=== PATIENT | female | born 1960 ===

== ENCOUNTER 2017-09-16 16:06 | Inpatient (IN) | payer OTHER ==
[2017-09-16] MEDS ORDERED: Sodium Chloride 0.9% 500 ML IV STA (16:23)
[2017-09-16 17:01] LABS: URINE BACTERIA RARE (<OCC); URINE BILIRUBIN NEGATIVE (NEGATIVE); URINE BLOOD NEGATIVE (NEGATIVE); URINE CLARITY SLIGHTY-CLOUDY (Clear); URINE COLOR STRAW (YELLOW); URINE GLUCOSE (UA) NEG (Normal); URINE LEUKOCYTE ESTERASE NEG Leu/uL (Negative); URINE NITRATE NEGATIVE (NEGATIVE); URINE PROTEIN NEGATIVE (NEGATIVE); URINE UROBILINOGEN 0.2-1.0 mg/dL (0.2-1.0)
[2017-09-16 17:03] LABS: BASO % 0.6 % (0.0-2.0); EOS # 0.1 K/uL (0.0-0.7); EOS % 1.2 % (0.0-4.0); HEMOGLOBIN 13.7 g/dL (12.0-16.0); LYMPH # 1.6 K/uL (1.0-4.3); LYMPH % 24.2 % (20.0-40.0); MEAN CELL VOLUME 89.6 fl (81.0-99.0); MEAN CORPUSCULAR HEMOGLOBIN 30.8 pg (27.0-31.0); MEAN CORPUSCULAR HGB CONC 34.4 g/dL (33.0-37.0); MEAN PLATELET VOLUME 9.4 fl (7.2-11.7); MONO # 0.4 K/uL (0.0-0.8); MONO % 6.6 % (0.0-10.0); NEUT # 4.3 K/uL (1.8-7.0); NEUT % 67.4 % (50.0-75.0); NRBC % 0.1 % (0.0-0.0); RBC 4.44 Mil/uL (3.80-5.20); RED CELL DISTRIBUTION WIDTH 13.8 % (11.5-14.5); WHITE BLOOD COUNT 6.4 K/uL (4.8-10.8)
[2017-09-16 17:04] LABS: ACETAMINOPHEN < 10.0 ug/ml (10.0-30.0); SALICYLATE < 1.0 mg/dl
[2017-09-16 17:11] LABS: ALB/GLOB RATIO 1.2 (1.0-2.1); ALBUMIN 4.3 g/dL (3.5-5.0); ALT/SGPT 27 U/L (9-52); AST/SGOT 24 U/L (14-36); BARBITURATES, UR NEGATIVE (NEGATIVE); BLOOD UREA NITROGEN 15 mg/dl (7-17); CALCIUM 10.4 mg/dL (8.4-10.2); GFR AFRICAN-AMERICAN > 60; GFR NON-AFRICAN AMERICAN > 60; MAGNESIUM 2.3 MG/DL (1.6-2.3); OPIATES, UR NEGATIVE (NEGATIVE); PHENCYCLIDINE, UR NEGATIVE (NEGATIVE)
[2017-09-16 17:25] LABS: BENZODIAZEPINES, UR POSITIVE (NEGATIVE)
[2017-09-16 17:32] LABS: PARTIAL THROMBOPLASTIN TIME 27.7 Seconds (25.6-37.1); PROTHROMBIN TIME 11.4 Seconds (9.8-13.1)
--- NOTE | 2017-09-16 18:08 | RAD ---
HISTORY: Overdose COMPARISON: 05/27/2009 FINDINGS: LUNGS: No active pulmonary disease. PLEURA: No significant pleural effusion identified, no pneumothorax apparent. CARDIOVASCULAR: No radiographic findings to suggest acute or significant cardiovascular disease. OSSEOUS STRUCTURES: No significant abnormalities. VISUALIZED UPPER ABDOMEN: Normal. OTHER FINDINGS: None. IMPRESSION: No active disease. No significant interval change compared to the prior examination(s).
[2017-09-16] MEDS ORDERED: Sodium Chloride 0.9% 1,000 ML IV STA ×2 (18:11→18:48)
[2017-09-16 18:41] LABS: ABG ALLEN TEST YES; ARTERIAL BLOOD GAS HCO3 26.1 mmol/L (21-28); ARTERIAL BLOOD GAS O2 SAT 98.7 % (95-98); ARTERIAL BLOOD GAS PCO2 46 mm/Hg (35-45); ARTERIAL BLOOD GAS PH 7.38 (7.35-7.45); ARTERIAL BLOOD GAS PO2 98 mm/Hg (80-100); ARTERIAL BLOOD GAS TCO2 28.6 mmol/L (22-28)
[2017-09-16] MEDS ORDERED: Flumazenil 0.1 mg/ml Inj (5ml) IVP ONE (18:48)
[2017-09-16] MEDS ORDERED: Flumazenil 0.1 mg/ml Inj (5ml) IVP PRN (18:49)
--- NOTE | 2017-09-16 18:54 | CP.PCM.CON ---
History of Present Illness - History of Present Illness History of Present Illness: 57 y/o female with unknown PMx admitted to [facility] for AMS suspect overdose of unknown, benzo + opoids. Patient drowsy, unable to provide any history. Review of Systems - Review of Systems Review of Systems: Patient drowsy not able to provide any ROS 2nd drowsiness Past Patient History - Past Social History Smoking Status: Unknown If Ever Smoked - CARDIAC Hx Cardiac Disorders: No - ENDOCRINE/METABOLIC Hx Endocrine Disorders: No - GENITOURINARY/GYNECOLOGICAL Other/Comment: breast cancer - PSYCHIATRIC Hx Psychophysiologic Disorder: Yes Hx Depression: Yes Hx Substance Use: No - SURGICAL HISTORY Hx Surgeries: Yes Other/Comment: right arm "lymph node surgery" - ANESTHESIA Hx Anesthesia: Yes Hx Anesthesia Reactions: No Meds Allergies/Adverse Reactions: Allergies Allergy/AdvReac Type Severity Reaction Status Date / Time Unobtainable Allergy Verified 09/16/17 16:12 - Medications Medications: Current Medications Flumazenil (Romazicon) 0.2 mg IVP ONCE ONE Stop: 09/16/17 18:49 Flumazenil (Romazicon) 0.3 mg IVP Q2H PRN PRN Reason: Sedation Sodium Chloride (Sodium Chloride 0.9%) 1,000 mls @ 1,000 mls/hr IV .Q1H STA Stop: 09/16/17 19:10 Dextrose/Sodium Chloride (Dextrose 5%-0.9% Ns 500 Ml) 1,000 mls @ 100 mls/hr IV .Q10H FLACO Sodium Chloride (Sodium Chloride 0.9%) 1,000 mls @ 1,000 mls/hr IV .Q1H STA Stop: 09/16/17 19:47 Dextrose/Sodium Chloride (Dextrose 5%/0.9% Ns 1000 Ml) 1,000 mls @ 75 mls/hr IV .[id number] FLACO Stop: 09/17/17 18:51 Physical Exam - Head Exam Head Exam: ATRAUMATIC, NORMAL INSPECTION, NORMOCEPHALIC - Eye Exam Eye Exam: EOMI Additional comments: pinpoint pupils - Respiratory Exam Respiratory Exam: Clear to Auscultation Bilateral, NORMAL BREATHING PATTERN - Extremities Exam Extremities exam: Positive for: normal inspection - Neurological Exam Neurological exam: Altered Results - Vital Signs Recent Vital Signs: Last Vital Signs Temp 97.1 F L 09/16/17 18:12 Pulse 63 09/16/17 18:12 Resp 18 09/16/17 18:12 BP 86/60 L 09/16/17 18:12 Pulse Ox 98 09/16/17 18:12 - Labs Result Diagrams: 09/16/17 16:46 09/16/17 16:46 Labs: Laboratory Results - last 24 hr 09/16/17 09/16/17 09/16/17 16:46 16:46 16:46 WBC 6.4 RBC 4.44 Hgb 13.7 Hct 39.8 MCV 89.6 MCH 30.8 MCHC 34.4 RDW 13.8 Plt Count 248 MPV 9.4 Neut % (Auto) 67.4 Lymph % (Auto) 24.2 [place] % (Auto) 6.6 Eos % (Auto) 1.2 Baso % (Auto) 0.6 Neut # 4.3 Lymph # 1.6 [place] # 0.4 Eos # 0.1 Baso # 0.0 PT INR APTT pCO2 pO2 HCO3 ABG pH ABG Total CO2 ABG O2 Saturation ABG Base Excess Nando Test ABG Potassium A-a O2 Difference Glucose Lactate FiO2 Sodium 135 Potassium 4.5 Chloride 101 Carbon Dioxide 33 H Anion Gap 6 L BUN 15 Creatinine 0.8 Est GFR ( Amer) > 60 Est GFR (Non-Af Amer) > 60 POC Glucose (mg/dL) Random Glucose 93 Calcium 10.4 H Phosphorus 3.2 Magnesium 2.3 Total Bilirubin 0.6 AST 24 ALT 27 Alkaline Phosphatase 58 Troponin I < 0.0120 Total Protein 8.0 Albumin 4.3 Globulin 3.7 Albumin/Globulin Ratio 1.2 Arterial Blood Potassium Urine Color Urine Clarity Urine pH Ur Specific [place] Urine Protein Urine Glucose (UA) Urine Ketones Urine Blood Urine Nitrate Urine Bilirubin Urine Urobilinogen Ur Leukocyte Esterase Urine RBC (Auto) Urine Microscopic WBC Urine Bacteria Salicylates < 1.0 Urine Opiates Screen Urine Methadone Screen Acetaminophen < 10.0 L Ur Barbiturates Screen Ur Phencyclidine Scrn Ur Amphetamines Screen U Benzodiazepines Scrn U Oth Cocaine Metabols U Cannabinoids Screen Alcohol, Quantitative < 10 Blood Type Antibody Screen BBK History Checked 09/16/17 09/16/17 09/16/17 16:46 16:46 16:46 WBC RBC Hgb Hct MCV MCH MCHC RDW Plt Count MPV Neut % (Auto) Lymph % (Auto) [place] % (Auto) Eos % (Auto) Baso % (Auto) Neut # Lymph # [place] # Eos # Baso # PT 11.4 INR 1.0 APTT 27.7 pCO2 pO2 HCO3 ABG pH ABG Total CO2 ABG O2 Saturation ABG Base Excess Nando Test ABG Potassium A-a O2 Difference Glucose Lactate FiO2 Sodium Potassium Chloride Carbon Dioxide Anion Gap BUN Creatinine Est GFR ( Amer) Est GFR (Non-Af Amer) POC Glucose (mg/dL) Random Glucose Calcium Phosphorus Magnesium Total Bilirubin AST ALT Alkaline Phosphatase Troponin I Total Protein Albumin Globulin Albumin/Globulin Ratio Arterial Blood Potassium Urine Color Straw Urine Clarity Slighty-cloudy Urine pH 7.0 Ur Specific [place] < 1.005 Urine Protein Negative Urine Glucose (UA) Neg Urine Ketones Negative Urine Blood Negative Urine Nitrate Negative Urine Bilirubin Negative Urine Urobilinogen 0.2-1.0 Ur Leukocyte Esterase Neg Urine RBC (Auto) 1 Urine Microscopic WBC 1 Urine Bacteria Rare Salicylates Urine Opiates Screen Negative Urine Methadone Screen Negative Acetaminophen Ur Barbiturates Screen Negative Ur Phencyclidine Scrn Negative Ur Amphetamines Screen Negative U Benzodiazepines Scrn Positive U Oth Cocaine Metabols Negative U Cannabinoids Screen Negative Alcohol, Quantitative Blood Type Antibody Screen BBK History Checked 09/16/17 09/16/17 09/16/17 17:00 18:17 18:32 WBC RBC Hgb Hct MCV MCH MCHC RDW Plt Count MPV Neut % (Auto) Lymph % (Auto) [place] % (Auto) Eos % (Auto) Baso % (Auto) Neut # Lymph # [place] # Eos # Baso # PT INR APTT pCO2 46 H pO2 98 HCO3 26.1 ABG pH 7.38 ABG Total CO2 28.6 H ABG O2 Saturation 98.7 H ABG Base Excess 1.5 Nando Test Yes ABG Potassium 3.6 A-a O2 Difference -6.0 Glucose 98 Lactate 0.5 L FiO2 21.0 Sodium 139.0 Potassium Chloride 109.0 H Carbon Dioxide Anion Gap BUN Creatinine Est GFR ( Amer) Est GFR (Non-Af Amer) POC Glucose (mg/dL) 96 Random Glucose Calcium Phosphorus Magnesium Total Bilirubin AST ALT Alkaline Phosphatase Troponin I Total Protein Albumin Globulin Albumin/Globulin Ratio Arterial Blood Potassium 3.6 Urine Color Urine Clarity Urine pH Ur Specific [place] Urine Protein Urine Glucose (UA) Urine Ketones Urine Blood Urine Nitrate Urine Bilirubin Urine Urobilinogen Ur Leukocyte Esterase Urine RBC (Auto) Urine Microscopic WBC Urine Bacteria Salicylates Urine Opiates Screen Urine Methadone Screen Acetaminophen Ur Barbiturates Screen Ur Phencyclidine Scrn Ur Amphetamines Screen U Benzodiazepines Scrn U Oth Cocaine Metabols U Cannabinoids Screen Alcohol, Quantitative Blood Type B POSITIVE Antibody Screen Negative BBK History Checked No verified bt Assessment & Plan - Assessment and Plan (Free Text) Plan: Drug overdose: suspect benzo +/- oxycodone: able to protect airway, -obtain CT r/o ICH -will benefit from ICU level care -monitor endtidal CO2 and infuse flumazenil if RR <8 or ETCo2 > 45 -NPO -hypercalcemia: cause unknoen, check afterIV hydration -check UA, vitamin D levels -IVF D5/ns -NO signs of sepsis, check lactica dn procalcitonine -dvt ppx heparin sq -pud ppx not indicated multiple diagnostic tests pending prognsosi guarded pending resutls of above diagnostic tests. Patient will benfit from ICU level monitoring until ingested drug is metabolized - Date & Time Date: 09/16/17 Time: 18:56
[2017-09-16] MEDS ORDERED: Naloxone 0.4 mg/ml Inj (Adult) IVP ONE (19:00)
[2017-09-16] MEDS ORDERED: Dextrose 5%/0.9% NS 1,000 ML IV SCH (19:00)
--- NOTE | 2017-09-16 19:03 | ED PDOC ---
HPI: Psych/Substance Abuse Time Seen by Provider: 09/16/17 16:13 Chief Complaint (Nursing): Substance Abuse Chief Complaint (Provider): Substance Abuse ED Caveat: Unstable Vital Signs, Other History Per: EMS, Family () History/Exam Limitations: clinical condition (overdose) Onset/Duration Of Symptoms: Mins (prior to arrival) Current Symptoms Are (Timing): Still Present Additional Complaint(s): 57 year old female with previous medical history of anxiety, who presents to the emergency department via EMS with for an overdose of 26-28 tablets of Xanax 2mg in attempted suicide prior to arrival. Unable to obtain medical history of patient due to current clinical condition. reported patient wanted to kill herself after finding out about 's cancer. He denied any ingestion of alcohol or other drugs. PMD: none provided Past Medical History Reviewed: Nursing Documentation, Unable To Obtain (overdose) Vital Signs: Last Vital Signs Temp 97.1 F L 09/16/17 18:12 Pulse 63 09/16/17 18:12 Resp 18 09/16/17 18:12 BP 86/60 L 09/16/17 18:12 Pulse Ox 98 09/16/17 18:12 - Medical History PMH: Depression, Malignancy (breast cancer) Denies: No Chronic Diseases - Surgical History Surgical History: Denies: No Surg Hx Other surgeries: right arm lymphadenectomy - Family History Family History: States: Unknown Family Hx - Social History Current smoker - smoking cessation education provided: No Alcohol: Occasional Drugs: Denies - Home Medications Home Medications: Ambulatory Orders Medication Instructions Recorded Alprazolam [Xanax] 2 mg PO PRN PRN 09/16/17 valACYclovir [Valtrex] 500 mg PO DAILY 09/16/17 - Allergies Allergies/Adverse Reactions: Allergies Allergy/AdvReac Type Severity Reaction Status Date / Time morphine Allergy ANAPHYLAXIS Verified 09/16/17 23:46 Penicillins Allergy ANAPHYLAXIS Verified 09/16/17 23:46 Review of Systems Review Of Systems: ROS cannot be obtained secondary to pt's inabilty to answer questions. (overdose) Physical Exam - Reviewed Nursing Documentation Reviewed: Yes Vital Signs Reviewed: Yes - Physical Exam Appears: Positive for: In Acute Distress (obtunded and confused) Head Exam: Positive for: ATRAUMATIC, NORMOCEPHALIC Skin: Positive for: Warm, Dry, Pallor Eye Exam: Positive for: EOMI, PERRL ENT: Positive for: Other (tacky mucus membranes, intact gag reflex) Neck: Positive for: Painless ROM, Supple Cardiovascular/Chest: Positive for: Regular Rate, Rhythm, Chest Non Tender. Negative for: Murmur Respiratory: Positive for: Normal Breath Sounds. Negative for: Wheezing, Respiratory Distress Gastrointestinal/Abdominal: Positive for: Soft. Negative for: Tenderness Back: Positive for: Normal Inspection. Negative for: Decreased ROM Extremity: Positive for: Normal ROM. Negative for: Deformity Lymphatic: Negative for: Adenopathy Neurologic/Psych: Positive for: Other (GCS 13, sleepy but arousable to voice. SPeech slurred.). Negative for: Alert, Motor/Sensory Deficits - Laboratory Results Result Diagrams: 09/18/17 10:20 09/18/17 10:20 - ECG ECG Rhythm: Positive for: Sinus Rhythm, ST/T Changes O2 Sat by Pulse Oximetry: 98 (RA) Pulse Ox Interpretation: Normal - Radiology X-Ray: Interpreted by Dc X-Ray Interpretation: No Acute Disease - Critical Care Total Time (In Min): 30 Documented Critical Care: Time excludes all time spent performint seperately billable procedures Medical Decision Making Medical Decision Making: Initial Impression: Benzodiazepine overdose Initial Plan: * Type and screen * ABG shock panel * EKG * Acetaminophen * Alcohol serum * CMP * Magnesium * Phosphorous * Salicylate Troponin I * Critical care consult 1846 * Poison control consult 1622 * Urine dipstick * CBC * PTT * PT * CXR * Dextrose 5% 1,000ml IV per 100mls/hr * NS 500ml IV per 500mls/hr * 1:1 OBS Time: 1622 --Poison control consult: recommended supportive care. Advises against use of flumazenil due to pt's known dependence on benzodiazepines. Has high risk of seizure if given. Time: 1700 --CXR FINDINGS: LUNGS: No active pulmonary disease. PLEURA: No significant pleural effusion identified, no pneumothorax apparent. CARDIOVASCULAR: No radiographic findings to suggest acute or significant cardiovascular disease. OSSEOUS STRUCTURES: No significant abnormalities. VISUALIZED UPPER ABDOMEN: Normal. OTHER FINDINGS: None. IMPRESSION: No active disease. No significant interval change compared to the prior examination(s). Time: 1830 --Systolic blood pressure: 89. Improving with aggressive IV hydration. --Arousable to voice but confused. Mental status essentially unchanged. --Discussed case with Dr. Chua, medical services --Discussed case with Dr. Poonam Paul, intensive care Time: 2040 --CT head FINDINGS: Brain: Minimal atrophy. No intracranial hemorrhage. No mass. No definite edema. Ventricles: No hydrocephalus. Bones/joints: No acute fracture. Soft tissues: Several foci of air within left buttermilk drier operator space and left scalp, nonspecific. Sinuses: Mild focal mucosal thickening of LEFT maxillary sinus. Mastoid air cells: No mastoid effusion. Orbits: Unremarkable as visualized. IMPRESSION: 1. No definite acute intracranial abnormality. 2. Incidental/non-acute findings are described above. Scribe Attestation: Documented by Gloria Camp, acting as a scribe for Clementine Tracey MD. Provider Scribe Attestation: All medical record entries made by the Scribe were at my direction and personally dictated by me. I have reviewed the chart and agree that the record accurately reflects my personal performance of the history, physical exam, medical decision making, and the department course for this patient. I have also personally directed, reviewed, and agree with the discharge instructions and disposition. Disposition - Clinical Impression Clinical Impression: Intentional benzodiazepine overdose Counseled Patient/Family Regarding: Studies Performed, Diagnosis - Disposition Disposition Time: 17:00 Condition: CRITICAL - Pt Status Changed To: Hospital Disposition Of: Inpatient - Admit Certification Admit to Inpatient:: After my assessment, the patient will require hospitalization for at least two midnights. This is because of the severity of symptoms shown, intensity of services needed, and/or the medical risk in this patient being treated as an outpatient. - POA Present On Arrival: Falls Or Trauma (risk)
[2017-09-16] MEDS ORDERED: Naloxone 0.4 mg/ml Inj (Adult) ONE (19:44)
--- NOTE | 2017-09-16 20:41 | CT ---
EXAM: CT Head Without Intravenous Contrast CLINICAL HISTORY: 57 years old, female; Signs and symptoms; Other: R/O AMS; Additional info: R/O AMS. Benzodiazepine overdose TECHNIQUE: Axial computed tomography images of the head/brain without intravenous contrast. All CT scans at this facility use one or more dose reduction techniques, viz.: automated exposure control; ma/kV adjustment per patient size (including targeted exams where dose is matched to indication; i.e. head); or iterative reconstruction technique. Coronal and sagittal reformatted images were created and reviewed. COMPARISON: No relevant prior studies available. FINDINGS: Brain: Minimal atrophy. No intracranial hemorrhage. No mass. No definite edema. Ventricles: No hydrocephalus. Bones/joints: No acute fracture. Soft tissues: Several foci of air within left commissioner of officials space and left scalp, nonspecific. Sinuses: Mild focal mucosal thickening of LEFT maxillary sinus. Mastoid air cells: No mastoid effusion. Orbits: Unremarkable as visualized. IMPRESSION: 1. No definite acute intracranial abnormality. 2. Incidental/non-acute findings are described above.
[2017-09-16] MEDS ORDERED: Sodium Chloride 0.9% 250 ML IV ONE (23:34)
[2017-09-17] MEDS ORDERED: Sodium Chloride 0.9% 1,000 ML IV SCH (01:00)
[2017-09-17 05:46] LABS: MEAN CELL VOLUME 92.3 fl (81.0-99.0); MEAN CORPUSCULAR HEMOGLOBIN 29.8 pg (27.0-31.0); MEAN CORPUSCULAR HGB CONC 32.3 g/dL (33.0-37.0); RBC 4.02 Mil/uL (3.80-5.20); RED CELL DISTRIBUTION WIDTH 13.9 % (11.5-14.5); WHITE BLOOD COUNT 11.4 K/uL (4.8-10.8)
[2017-09-17 05:59] LABS: ALBUMIN 3.2 g/dL (3.5-5.0); ALT/SGPT 26 U/L (9-52); AST/SGOT 20 U/L (14-36); BLOOD UREA NITROGEN 10 mg/dl (7-17); CALCIUM 8.5 mg/dL (8.4-10.2); GFR AFRICAN-AMERICAN > 60; GFR NON-AFRICAN AMERICAN > 60
[2017-09-17] MEDS ORDERED: Enoxaparin 40 mg Syringe SC SCH ×2 (12:00→20:00)
--- NOTE | 2017-09-17 13:40 | CP.PCM.CON ---
History of Present Illness - History of Present Illness History of Present Illness: Psychiatry consult Interview limited as the patient is acutely lethargic and unable to engage properly in interview. Case discussed w/ the patient's who was present in the room. Chart reviewed for history. CC: Overdose HPI:57 yo female BIB EMS after she overdosed on 26-28 tablets of Xanax 2 mg, which states she normally takes to help her sleep. As per , that patient attempted to kill herself after learning that he has cancer. He reports that she fears being alone and living without him. Patient receives the Xanax from her PMD. He believes she has been suffering from depression and anxiety. He denied that she has reported psychotic symptoms to him. PMHx: Patient unable to provide history at this time SHx: , lives w/ . No other illicit drug use. PPHx: Receives Xanax from her PMD; was previously treated w/ outpatient psychiatric treatment by a psychiatrist in [place], but no current tx. MSE: Patient unable to participate in interview due to lethargy. A + O x 1. Impression: 57 yo female presents s/p suicide attempt. Patient needs acute inpatient psychiatric admission when she is medically stable. -If patient agreeable, would admit patient to psychiatry unit 3NS; it patient is not agreeable to voluntary psychiatric admission, would screen patient for involuntary commitment -Would not start psychotropic medications until patient is medically stable -Continue 1:1 for safety Past Patient History - Past Medical History & Family History Past Medical History?: Yes - Past Social History Alcohol: Occasional Drugs: Denies - CARDIAC Hx Cardiac Disorders: No - PULMONARY Hx Respiratory Disorders: No - NEUROLOGICAL Hx Neurological Disorder: No - HEENT Hx HEENT Problems: No - RENAL Hx Chronic Kidney Disease: No - ENDOCRINE/METABOLIC Hx Hypothyroidism: Yes (pt takes synthroid) - HEMATOLOGICAL/ONCOLOGICAL Hx Blood Disorders: No - INTEGUMENTARY Hx Dermatological Problems: No - MUSCULOSKELETAL/RHEUMATOLOGICAL Hx Musculoskeletal Disorders: No - GASTROINTESTINAL Hx Gastrointestinal Disorders: No - GENITOURINARY/GYNECOLOGICAL Other/Comment: breast cancer - PSYCHIATRIC Hx Depression: Yes - SURGICAL HISTORY Hx Surgeries: Yes Other/Comment: right arm "lymph node surgery" - ANESTHESIA Hx Anesthesia: Yes Hx Anesthesia Reactions: No Meds Allergies/Adverse Reactions: Allergies Allergy/AdvReac Type Severity Reaction Status Date / Time morphine Allergy ANAPHYLAXIS Verified 09/16/17 23:46 Penicillins Allergy ANAPHYLAXIS Verified 09/16/17 23:46 - Medications Medications: Current Medications Enoxaparin Sodium (Lovenox) 40 mg SC DAILY [facility] PRN Reason: Protocol Flumazenil (Romazicon) 0.3 mg IVP Q2H PRN PRN Reason: Sedation Heparin Sodium (Porcine) (Heparin) 5,000 units SC Q8 [facility] PRN Reason: Protocol Last Admin: 09/17/17 09:13 Dose: 5,000 units Dextrose/Sodium Chloride (Dextrose 5%-0.9% Ns 500 Ml) 1,000 mls @ 150 mls/hr IV .Q6H40M [facility] Last Admin: 09/17/17 03:34 Dose: 150 mls/hr Sodium Chloride (Sodium Chloride 0.9%) 1,000 mls @ 999 mls/hr IV .Q1H1M [facility] Stop: 09/18/17 01:01 Last Admin: 09/17/17 01:21 Dose: 999 mls/hr Results - Vital Signs Recent Vital Signs: Last Vital Signs Temp 98.4 F 09/17/17 12:00 Pulse 79 09/17/17 12:00 Resp 18 09/17/17 12:00 BP 95/67 L 09/17/17 12:00 Pulse Ox 98 09/17/17 12:00 - Labs Result Diagrams: 09/17/17 05:44 09/17/17 05:44 Labs: Laboratory Results - last 24 hr 09/16/17 09/16/17 09/16/17 16:46 16:46 16:46 WBC 6.4 RBC 4.44 Hgb 13.7 Hct 39.8 MCV 89.6 MCH 30.8 MCHC 34.4 RDW 13.8 Plt Count 248 MPV 9.4 Neut % (Auto) 67.4 Lymph % (Auto) 24.2 Sumner % (Auto) 6.6 Eos % (Auto) 1.2 Baso % (Auto) 0.6 Neut # 4.3 Lymph # 1.6 Sumner # 0.4 Eos # 0.1 Baso # 0.0 PT INR APTT pCO2 pO2 HCO3 ABG pH ABG Total CO2 ABG O2 Saturation ABG Base Excess Nando Test ABG Potassium A-a O2 Difference Glucose Lactate FiO2 Sodium 135 Potassium 4.5 Chloride 101 Carbon Dioxide 33 H Anion Gap 6 L BUN 15 Creatinine 0.8 Est GFR ( Amer) > 60 Est GFR (Non-Af Amer) > 60 POC Glucose (mg/dL) Random Glucose 93 Lactic Acid Calcium 10.4 H Phosphorus 3.2 Magnesium 2.3 Total Bilirubin 0.6 AST 24 ALT 27 Alkaline Phosphatase 58 Troponin I < 0.0120 Total Protein 8.0 Albumin 4.3 Globulin 3.7 Albumin/Globulin Ratio 1.2 Arterial Blood Potassium Urine Color Urine Clarity Urine pH Ur Specific [place] Urine Protein Urine Glucose (UA) Urine Ketones Urine Blood Urine Nitrate Urine Bilirubin Urine Urobilinogen Ur Leukocyte Esterase Urine RBC (Auto) Urine Microscopic WBC Urine Bacteria Salicylates < 1.0 Urine Opiates Screen Urine Methadone Screen Acetaminophen < 10.0 L Ur Barbiturates Screen Ur Phencyclidine Scrn Ur Amphetamines Screen U Benzodiazepines Scrn U Oth Cocaine Metabols U Cannabinoids Screen Alcohol, Quantitative < 10 Blood Type Antibody Screen BBK History Checked 09/16/17 09/16/17 09/16/17 16:46 16:46 16:46 WBC RBC Hgb Hct MCV MCH MCHC RDW Plt Count MPV Neut % (Auto) Lymph % (Auto) Sumner % (Auto) Eos % (Auto) Baso % (Auto) Neut # Lymph # [place] # Eos # Baso # PT 11.4 INR 1.0 APTT 27.7 pCO2 pO2 HCO3 ABG pH ABG Total CO2 ABG O2 Saturation ABG Base Excess Nando Test ABG Potassium A-a O2 Difference Glucose Lactate FiO2 Sodium Potassium Chloride Carbon Dioxide Anion Gap BUN Creatinine Est GFR ( Amer) Est GFR (Non-Af Amer) POC Glucose (mg/dL) Random Glucose Lactic Acid Calcium Phosphorus Magnesium Total Bilirubin AST ALT Alkaline Phosphatase Troponin I Total Protein Albumin Globulin Albumin/Globulin Ratio Arterial Blood Potassium Urine Color Straw Urine Clarity Slighty-cloudy Urine pH 7.0 Ur Specific [place] < 1.005 Urine Protein Negative Urine Glucose (UA) Neg Urine Ketones Negative Urine Blood Negative Urine Nitrate Negative Urine Bilirubin Negative Urine Urobilinogen 0.2-1.0 Ur Leukocyte Esterase Neg Urine RBC (Auto) 1 Urine Microscopic WBC 1 Urine Bacteria Rare Salicylates Urine Opiates Screen Negative Urine Methadone Screen Negative Acetaminophen Ur Barbiturates Screen Negative Ur Phencyclidine Scrn Negative Ur Amphetamines Screen Negative U Benzodiazepines Scrn Positive U Oth Cocaine Metabols Negative U Cannabinoids Screen Negative Alcohol, Quantitative Blood Type Antibody Screen BBK History Checked 09/16/17 09/16/17 09/16/17 17:00 18:17 18:32 WBC RBC Hgb Hct MCV MCH MCHC RDW Plt Count MPV Neut % (Auto) Lymph % (Auto) Sumner % (Auto) Eos % (Auto) Baso % (Auto) Neut # Lymph # [place] # Eos # Baso # PT INR APTT pCO2 46 H pO2 98 HCO3 26.1 ABG pH 7.38 ABG Total CO2 28.6 H ABG O2 Saturation 98.7 H ABG Base Excess 1.5 Nando Test Yes ABG Potassium 3.6 A-a O2 Difference -6.0 Glucose 98 Lactate 0.5 L FiO2 21.0 Sodium 139.0 Potassium Chloride 109.0 H Carbon Dioxide Anion Gap BUN Creatinine Est GFR ( Amer) Est GFR (Non-Af Amer) POC Glucose (mg/dL) 96 Random Glucose Lactic Acid Calcium Phosphorus Magnesium Total Bilirubin AST ALT Alkaline Phosphatase Troponin I Total Protein Albumin Globulin Albumin/Globulin Ratio Arterial Blood Potassium 3.6 Urine Color Urine Clarity Urine pH Ur Specific [place] Urine Protein Urine Glucose (UA) Urine Ketones Urine Blood Urine Nitrate Urine Bilirubin Urine Urobilinogen Ur Leukocyte Esterase Urine RBC (Auto) Urine Microscopic WBC Urine Bacteria Salicylates Urine Opiates Screen Urine Methadone Screen Acetaminophen Ur Barbiturates Screen Ur Phencyclidine Scrn Ur Amphetamines Screen U Benzodiazepines Scrn U Oth Cocaine Metabols U Cannabinoids Screen Alcohol, Quantitative Blood Type B POSITIVE Antibody Screen Negative BBK History Checked No verified bt 09/16/17 09/16/17 09/16/17 20:15 23:00 23:27 WBC RBC Hgb Hct MCV MCH MCHC RDW Plt Count MPV Neut % (Auto) Lymph % (Auto) Sumner % (Auto) Eos % (Auto) Baso % (Auto) Neut # Lymph # [place] # Eos # Baso # PT INR APTT pCO2 pO2 HCO3 ABG pH ABG Total CO2 ABG O2 Saturation ABG Base Excess Nando Test ABG Potassium A-a O2 Difference Glucose Lactate FiO2 Sodium Potassium Chloride Carbon Dioxide Anion Gap BUN Creatinine Est GFR ( Amer) Est GFR (Non-Af Amer) POC Glucose (mg/dL) 111 H Random Glucose Lactic Acid 1.7 0.9 Calcium Phosphorus Magnesium Total Bilirubin AST ALT Alkaline Phosphatase Troponin I Total Protein Albumin Globulin Albumin/Globulin Ratio Arterial Blood Potassium Urine Color Urine Clarity Urine pH Ur Specific [place] Urine Protein Urine Glucose (UA) Urine Ketones Urine Blood Urine Nitrate Urine Bilirubin Urine Urobilinogen Ur Leukocyte Esterase Urine RBC (Auto) Urine Microscopic WBC Urine Bacteria Salicylates Urine Opiates Screen Urine Methadone Screen Acetaminophen Ur Barbiturates Screen Ur Phencyclidine Scrn Ur Amphetamines Screen U Benzodiazepines Scrn U Oth Cocaine Metabols U Cannabinoids Screen Alcohol, Quantitative Blood Type Antibody Screen BBK History Checked 09/17/17 09/17/17 09/17/17 03:00 05:44 05:44 WBC 11.4 H D RBC 4.02 Hgb 12.0 Hct 37.1 MCV 92.3 D MCH 29.8 MCHC 32.3 L RDW 13.9 Plt Count 191 MPV Neut % (Auto) Lymph % (Auto) [place] % (Auto) Eos % (Auto) Baso % (Auto) Neut # Lymph # [place] # Eos # Baso # PT INR APTT pCO2 pO2 HCO3 ABG pH ABG Total CO2 ABG O2 Saturation ABG Base Excess Nando Test ABG Potassium A-a O2 Difference Glucose Lactate FiO2 Sodium 148 Potassium 4.4 Chloride 112 H Carbon Dioxide 29 Anion Gap 11 BUN 10 Creatinine 0.7 Est GFR ( Amer) > 60 Est GFR (Non-Af Amer) > 60 POC Glucose (mg/dL) Random Glucose 116 H Lactic Acid 1.4 Calcium 8.5 Phosphorus Magnesium Total Bilirubin 0.5 AST 20 ALT 26 Alkaline Phosphatase 47 Troponin I Total Protein 6.3 Albumin 3.2 L D Globulin 3.1 Albumin/Globulin Ratio 1.0 Arterial Blood Potassium Urine Color Urine Clarity Urine pH Ur Specific [place] Urine Protein Urine Glucose (UA) Urine Ketones Urine Blood Urine Nitrate Urine Bilirubin Urine Urobilinogen Ur Leukocyte Esterase Urine RBC (Auto) Urine Microscopic WBC Urine Bacteria Salicylates Urine Opiates Screen Urine Methadone Screen Acetaminophen Ur Barbiturates Screen Ur Phencyclidine Scrn Ur Amphetamines Screen U Benzodiazepines Scrn U Oth Cocaine Metabols U Cannabinoids Screen Alcohol, Quantitative Blood Type Antibody Screen BBK History Checked 09/17/17 09/17/17 06:06 11:10 WBC RBC Hgb Hct MCV MCH MCHC RDW Plt Count MPV Neut % (Auto) Lymph % (Auto) [place] % (Auto) Eos % (Auto) Baso % (Auto) Neut # Lymph # [place] # Eos # Baso # PT INR APTT pCO2 pO2 HCO3 ABG pH ABG Total CO2 ABG O2 Saturation ABG Base Excess Nando Test ABG Potassium A-a O2 Difference Glucose Lactate FiO2 Sodium Potassium Chloride Carbon Dioxide Anion Gap BUN Creatinine Est GFR ( Amer) Est GFR (Non-Af Amer) POC Glucose (mg/dL) 109 106 Random Glucose Lactic Acid Calcium Phosphorus Magnesium Total Bilirubin AST ALT Alkaline Phosphatase Troponin I Total Protein Albumin Globulin Albumin/Globulin Ratio Arterial Blood Potassium Urine Color Urine Clarity Urine pH Ur Specific [place] Urine Protein Urine Glucose (UA) Urine Ketones Urine Blood Urine Nitrate Urine Bilirubin Urine Urobilinogen Ur Leukocyte Esterase Urine RBC (Auto) Urine Microscopic WBC Urine Bacteria Salicylates Urine Opiates Screen Urine Methadone Screen Acetaminophen Ur Barbiturates Screen Ur Phencyclidine Scrn Ur Amphetamines Screen U Benzodiazepines Scrn U Oth Cocaine Metabols U Cannabinoids Screen Alcohol, Quantitative Blood Type Antibody Screen BBK History Checked
--- NOTE | 2017-09-17 21:54 | CARD ---
APPROVED REPORT EKG Measurement Heart [id number] <Conclusion> Normal sinus rhythm Normal ECG
--- NOTE | 2017-09-18 04:38 | HP ---
HISTORY OF PRESENT ILLNESS: This is a 57-year-old female with no significant past medical history, was brought to emergency room after ingesting a whole bottle of alprazolam. The patient was upset after hearing the news of her 's diagnosis of cancer. Patient decided to end her life. Patient sent a text massage to her friend informing her that she decided to end her life after she heard the diagnosis of cancer of her . Patient was brought lethargic to emergency room and she had stable vital signs. Poison Control was contacted and patient was admitted to Intensive Care Unit after starting IV fluid and following Poison Control recommendations. No history is obtainable from the patient at the time of this examination. All history was obtained by the who was at the bedside. ALLERGIES: POSITIVE FOR MORPHINE AND PENICILLIN. PAST MEDICAL HISTORY: None. PAST SURGICAL HISTORY: None. SOCIAL HISTORY: No history of smoking, EtOH or substance abuse. FAMILY HISTORY: Noncontributory. PHYSICAL EXAMINATION: GENERAL: The patient is again lethargic at the time of this examination, was not in any cardiopulmonary distress. VITAL SIGNS: Blood pressure 100/65, temperature 98.4, respiratory rate 20 and pulse 75. HEENT: Pupils equal, reactive to light. Normal-appearing mucosa of the conjunctivae, oropharyngeal, and nasal membrane mucosa. NECK: Supple. No JVD. No carotid bruit. No lymph node. No thyromegaly. CHEST AND LUNGS: Bilateral symmetrical expansion. Good air exchange. No rales, no rhonchi. CARDIOVASCULAR SYSTEM: PMI not localized. S1, S2. No additional sounds. ABDOMEN: Normoactive bowel sounds. No tenderness. No organomegaly. No masses. EXTREMITIES: No cyanosis, no clubbing, no edema. CENTRAL NERVOUS SYSTEM: The patient is lethargic. She is following simple commands and falls back to sleep, but no signs of lateralization. ASSESSMENT: Suicidal attempt with ingestion of her own medications of Xanax. PLAN: Continue IV fluids. Continue one-to-one observation, Psych consult and follow Poison Control recommendations. Brittany Chua MD
[2017-09-18] MEDS ORDERED: Acetaminophen 650mg/20.3ml solution UD PO ONE (05:01)
[2017-09-18 07:56] VITALS: RESP 20
[2017-09-18] MEDS ORDERED: Flumazenil 0.1 mg/ml Inj (5ml) IVP PRN (10:00)
[2017-09-18 10:38] LABS: HEMOGLOBIN 12.1 g/dL (12.0-16.0); MEAN CELL VOLUME 90.6 fl (81.0-99.0); MEAN CORPUSCULAR HEMOGLOBIN 30.3 pg (27.0-31.0); MEAN CORPUSCULAR HGB CONC 33.4 g/dL (33.0-37.0); RBC 3.99 Mil/uL (3.80-5.20); RED CELL DISTRIBUTION WIDTH 13.4 % (11.5-14.5)
[2017-09-18 10:54] LABS: ALB/GLOB RATIO 1.1 (1.0-2.1); ALBUMIN 3.4 g/dL (3.5-5.0); ALT/SGPT 30 U/L (9-52); AST/SGOT 32 U/L (14-36); BLOOD UREA NITROGEN 6 mg/dl (7-17); CALCIUM 8.6 mg/dL (8.4-10.2); GFR AFRICAN-AMERICAN > 60; GFR NON-AFRICAN AMERICAN > 60
[2017-09-18 14:07] VITALS: O2SAT 98
[2017-09-18 16:49] VITALS: BP 110/63; PULSE 60; TEMP 98.1
[2017-09-18 23:00] LABS: OXYCODONE SCREEN negative
--- NOTE | 2017-09-19 22:10 | DS ---
REASON FOR ADMISSION: This is a 57-year-old female with no significant past medical history, was admitted for suicidal attempt by ingestion of an unknown number of Xanax pills. COURSE OF HOSPITALIZATION: Patient was initially admitted to Intensive Care Unit for close observation. Patient had . Patient had IV fluid and Poison Control recommendations were followed. Patient had a psych consult who agreed to discharge patient to Psychiatry floor. Patient was discharged to psych carpio and we will follow her up there. FINAL DIAGNOSIS: Suicidal attempt with ingesting her own Xanax pills. [facility] MD Harshil
== END 2017-09-18 18:30 | DRG 450 ==
LOC: H.ER 16:06 → H.ERHOLD 18:44 → H.ICU/CCU 21:09 → H.MEDSURG1 09-17 15:37
PROVIDERS: ADMIT Internal Medicine; ATTEND Internal Medicine
DX: T42.4X2A Poisoning by benzodiazepines, intentional self-harm, initial encounter (principal); E83.52 Hypercalcemia; E03.9 Hypothyroidism, unspecified; F32.9 Major depressive disorder, single episode, unspecified; Z88.0 Allergy status to penicillin; Z85.3 Personal history of malignant neoplasm of breast

== ENCOUNTER 2017-09-18 17:04 | Inpatient (IN) | payer OTHER ==
[2017-09-18 18:48] VITALS: BMI 22.9
[2017-09-18] MEDS ORDERED: Magnesium Hydroxide Susp 30 ml UD PO PRN (18:56)
[2017-09-18] MEDS ORDERED: Alum-Mag Hydrox-Simethicone Susp (30 mL) PO PRN (18:56)
[2017-09-18] MEDS ORDERED: Bismuth Subsalicylate 262 mg/15 ml Sus (240 ml) PO PRN (18:56)
--- NOTE | 2017-09-18 19:58 | PCM.BM ---
<Sourav Torres - Last Filed: 09/18/17 19:56> Treatment Plan Problems - Problems identified on initial assessmt Altered Sleep Patterns Date Initiated: 09/18/17 Time Initiated: 19:57 Assessment reference: NA Status: Active Treatment assets and liabiliti Patient Assests: adapts well, cooperative, ADL independent, good support system , negotiates basic needs, good interpersonal skills Patient Liabilities: medical problems - Milieu Protocol Maintain good personal hygiene: every shift Encourage regular showers, every shift Remind patient to perform daily oral care, every shift Assist patient to perform ADL's Maintain personal safety: daily Educate patient to report safety concerns to staff, daily Monitor environment for contraband/sharps Medication safety: Monitor for expected outcome, potential side effects: daily, Assess barriers to learning: daily, Assess readiness for medication education: daily <Ambika Cam - Last Filed: 09/19/17 13:07> - Diagnosis (1) Major depressive disorder Status: Acute Interventions: Medication management, Individual and group therapy, Psychoeducation 09/19/17 09:47 <Gabby Goodwin - Last Filed: 09/20/17 15:21> Family Contact Family contact: Patient agrees to contact, Telephone contact initiated by staff Family contact name: Raheem - Family contacted how many times per week?: 2 Family contact comment: [phone] - Goals for Treatment Patient goals for treatment: "I want to be able to take care of my ." Discharge/Continuing Care - Education Needs Education Needs: Family Medication, Family Diagnosis/Disease Process, Family Coping Skills, Family Community resources, Family Activities of Daily Living, Family Nutrition, Family Health Practices/Safety, Family Personal Hygiene/ Grooming, Family Aftercare Safety Plan, Patient Medication, Patient Diagnosis/ Disease Process, Patient Coping Skills, Patient Community resources, Patient Activities of Daily Living, Patient Nutrition, Patient Health Practices/Safety, Patient Personal Hygiene/Grooming, Patient Aftercare Safety Plan - Discharge Discharge Criteria: Tolerates medication w/o severe side effects, Free of Suicidal thoughts, Normal sleep pattern, Ability to care for self, Reduction of target symptoms Discharge to:: Home, With Family - Additional Comments 09/20/17 15:16 Pt seen and discussed in team meeting. Reason for admission reviewed and discussed. Pt reported feeling "I'm fine" now. Pt reported her suicide attempt was impulse and not planned. Pt reported previous suicide thoughts without plan and no intent. Pt reported her was sleeping and she got up and went to the dining room and next thing she knew she was in the hospital. Pt reported the last thing she recalls is feeling alone. Pt reported she is afraid to lose her to [place]. Pt's currently has stage 4 prostate cancer. Pt reported hx of depression untreated. Pt also reported she was prescribed Xanax 2mg at bedtime to help her with her sleep. Pt denied active SI and HI. Pt denied active wishes. Pt's social and medical issues reviewed and discussed. Pt's medications reviewed and discussed. Tx plan reviewed and pt is agreeable. SW to continue to follow case. - Treatment Team Participation Discussed with Family/SO: No Was Patient/Family/SO present at Treatment Team Meeting: Yes
[2017-09-19 08:21] LABS: HEMOGLOBIN 12.6 g/dL (12.0-16.0); MEAN CELL VOLUME 88.8 fl (81.0-99.0); MEAN CORPUSCULAR HEMOGLOBIN 29.9 pg (27.0-31.0); MEAN CORPUSCULAR HGB CONC 33.6 g/dL (33.0-37.0); RBC 4.23 Mil/uL (3.80-5.20); RED CELL DISTRIBUTION WIDTH 13.3 % (11.5-14.5); WHITE BLOOD COUNT 6.1 K/uL (4.8-10.8)
[2017-09-19 08:53] LABS: ALB/GLOB RATIO 1.1 (1.0-2.1); ALBUMIN 3.9 g/dL (3.5-5.0); ALT/SGPT 36 U/L (9-52); AST/SGOT 30 U/L (14-36); BLOOD UREA NITROGEN 9 mg/dl (7-17); CALCIUM 9.8 mg/dL (8.4-10.2); GFR AFRICAN-AMERICAN > 60; GFR NON-AFRICAN AMERICAN > 60; HDL CHOLESTEROL 27 MG/DL (30-70); LDL CHOLESTEROL 80 mg/dL (0-129)
[2017-09-19 09:00] LABS: T4 7.91 ug/dl (5.5-11.0)
[2017-09-19 09:17] LABS: FERRITIN 82.9 ng/Ml (11.1-264.0)
--- NOTE | 2017-09-19 09:47 | PCM.PSYCH ---
Initial Psychiatric Evaluation - Initial Psychiatric Evaluation Type of Admission: Voluntary Legal Status: Capacity Chief Complaint (in patient's own words): "I'm embarrassed about what I did." (suicide attempt) Patient's Reaction to Hospitalization: HPI:57 yo female BIB EMS after she overdosed on 26-28 tablets of Xanax 2 mg, which the patient was prescribed for sleep. Patient reports that she spontaneously decided to overdose on pills due to the stress of her having cancer. She reports that she has had depressed mood, sleep/appetite disturbances, anhedonia. She denies current AH/VH/SI/HI. She is able to contract for safety at this time. Patient received the Xanax from her PMD. PMHx: Herpes, Hypothyroidism, h/o HLD SHx: , lives w/ . No other illicit drug use. Unemployed. From [facility]. PPHx: Receives Xanax from her PMD; has a history of seeing a psychiatrist once, but did not follow-up. No history of psychiatric admissions. ALL: Morphine, PCN Current Medications: Active Medications Generic Name Dose Route Start Last Admin Trade Name Freq PRN Reason Stop Dose Admin Acetaminophen 650 mg 09/18/17 18:56 Tylenol 325mg Tab PO Q4 PRN Pain, moderate (4-7) Al Hydrox/Mg Hydrox/Simethicone 30 ml 09/18/17 18:56 Maalox Plus 30 Ml PO Q4 PRN Dyspepsia Bismuth Subsalicylate 524 mg 09/18/17 18:56 Pepto-Bismol PO Q4 PRN Diarrhea Lorazepam 0.5 mg 09/18/17 18:56 Ativan PO 10/02/17 18:57 HS PRN Insomnia Lorazepam 0.5 mg 09/18/17 18:56 Ativan PO 10/02/17 18:57 Q6 PRN Anixety/Agitation Magnesium Hydroxide 30 ml 09/18/17 18:56 Milk Of Magnesia PO HS PRN Constipation Past Psychiatric History - Past Psychiatric History Previous Treatment History: None Pertinent Medical Hx (Current Medical&Sleep Prob, Allergies): Allergies Allergy/AdvReac Type Severity Reaction Status Date / Time morphine Allergy ANAPHYLAXIS Verified 09/16/17 23:46 Penicillins Allergy ANAPHYLAXIS Verified 09/16/17 23:46 Alprazolam [Xanax] 2 mg PO PRN PRN 09/16/17 valACYclovir [Valtrex] 500 mg PO DAILY 09/16/17 Review of Systems - Psychiatric Psychiatric: As Per HPI, Abnormal Sleep Pattern, Anhedonia, Change in Appetite, Depression, Difficulty Concentrating, Hopelessness, Suicidal Ideation Mental Status Examination - Personal Presentation Personal Presentation: Looks stated age - Affect Affect: Constricted, Depressed - Motor Activity Motor Activity: Calm - Reliability in Providing Information Reliability in Providing Information: Fair - Speech Speech: Organized, Coherent - Mood Mood: Depressed - Formal Thought Process Formal Thought Process: No Impairment - Hallucinations/Delusions Additional comments: No AH/VH/paranoia/delusions - Obsessions/Compulsions Obsessions: No Compulsions: No - Cognitive Functions Orientation: Person, Place, Situation, Time Sensorium: Alert Estimate of Intelligence: Average Judgement: Intact, as evidence by: Good judgement, Intact, as evidence by: Insight regarding need for hospitalization Memory: Recent intact, as evidence by: Ability to recall events of the day, Remote intact, as evidenced by: Abilit to recall sig. life events, Remote intact , as evidenced by: Ability to recall historical events - Risk Risk: Suicidal, Diminished functioning - Strength & Assets Inventory Strength & Assets Inventory: Family support, Cooperative DSM 5 DX - DSM 5 DSM 5 Diagnosis: Major Depressive Disorder - Recommended/Plan of Treatment Treatment Recommendations and Plan of Treatment: Major Depressive Disorder; patient needs acute inpatient admission for treatment and safety -Admit to psychiatry -Individual and group therapy -Medicine consult -Start Remeron 15 mg PO HS -No 1:1 indicated at this time -Disposition planning Projected ELOS: 5-7 days Discharge Plan and Discharge Criteria: Discharge patient when she is psychiatrically stable - Smoking Cessation Smoking Cessation Initiated: No Reason for not providing: Not indicated
[2017-09-19 17:41] LABS: FOLATE 10.9 ng/mL
--- NOTE | 2017-09-20 12:22 | PCM.PYCHPN ---
Psychiatric Progress Note - Psychiatric Progress Note Patient seen today, length of contact: Patient evaluated, case discussed with team, chart reviewed Patient Chief Complaint: "I'm embarrassed about what I did." (suicide attempt) Problems Identified/Issues Discussed: Patient reports that she continues to feel depressed but she denies passive or active suicidal ideation. NO AH/VH/paranoia/delusions. She reports that the Remeron made her overly sleepy, so we discussed lowering the medication to 7.5 mg PO HS. Patient encouraged to participate in groups. Medication Change: Yes (Lower Remeron to 7.5 mg PO HS) Medical Record Reviewed: Yes Consults ordered or reviewed: Medicine consult Mental Status Examination - Cognitive Function Orientation: Person, Place, Situation, Time Memory: Intact Attention: WNL Concentration: WNL Association: WNL Fund of Knowledge: [facility] Decription of patient's judgement and insights: Fair I/J - Mood Mood: Depressed - Affect Affect: Constricted, Depressed - Speech Speech: Soft - Formal Thought Process Formal Thought Process: No Impairment Psychotic Thoughts and Behaviors: No AH/VH/paranoia/delusions - Suicidal Ideation Suicidal Ideation: No - Homicidal Ideation Homicidal Ideation: No Goal/Treatment Plan - Goal/Treatment Plan Need for Continued Stay: Remain at risks for inpatient hospitalization, Severe depression anxiety, Discharge may exacerbated symptoms Progress Toward Problem(s) and Goals/Treatment Plan: Major Depressive Disorder; patient needs acute inpatient admission for treatment and safety -Individual and group therapy -Medicine consult -Lower Remeron to 7.5 mg PO HS -No 1:1 indicated at this time -Family meeting with patient's -Disposition planning Estimated Date of D/C: 09/24/17 - Smoking Cessation Smoking Cessation Initiated: No Reason for not providing: Not indicated
[2017-09-21] MEDS: Levothyroxine 75 MCG TAB PO SCH (08:38)
--- NOTE | 2017-09-21 12:14 | PCM.PYCHPN ---
Psychiatric Progress Note - Psychiatric Progress Note Patient seen today, length of contact: Patient evaluated, case discussed with team, chart reviewed Patient Chief Complaint: pt is still depressed and anxious and still at times withdrawn and isolates herself Medication Change: Yes (Lower Remeron to 7.5 mg PO HS) Medical Record Reviewed: Yes Mental Status Examination - Cognitive Function Orientation: Person, Place, Situation, Time Memory: Intact Attention: WNL Concentration: WNL Association: WNL Fund of Knowledge: WNL - Mood Mood: Depressed - Affect Affect: Constricted, Depressed - Speech Speech: Soft - Formal Thought Process Formal Thought Process: No Impairment - Suicidal Ideation Suicidal Ideation: No - Homicidal Ideation Homicidal Ideation: No Goal/Treatment Plan - Goal/Treatment Plan Need for Continued Stay: Remain at risks for inpatient hospitalization, Severe depression anxiety, Discharge may exacerbated symptoms Progress Toward Problem(s) and Goals/Treatment Plan: will continue to titrate remeron as needed to stabilize the mood and sleep. disposition plans as per dr perdomo Estimated Date of D/C: 09/24/17
--- NOTE | 2017-09-21 14:15 | PN ---
DATE: 09/20/2017 SUBJECTIVE: The patient was seen on 09/20/2017 on the Psychiatry floor. The patient has no cardiopulmonary distress and she offered no complaint. PHYSICAL EXAMINATION: VITAL SIGNS: Blood pressure 150/93, temperature 97.5, respiratory rate 19 and pulse 72. HEENT: Pupils equal, reactive to light. Normal-appearing mucosa of the conjunctivae, oropharyngeal and nasal membrane mucosa. NECK: Supple. No JVD. No carotid bruit. No lymph node. No thyromegaly. CHEST AND LUNGS: Bilateral symmetrical expansion. Good air exchange. No rales. No rhonchi. CARDIOVASCULAR SYSTEM: PMI not localized. S1 and S2. No additional sounds. ABDOMEN: Normoactive bowel sounds. No tenderness. No organomegaly. No masses. EXTREMITIES: No cyanosis. No clubbing. No edema. CENTRAL NERVOUS SYSTEM: Alert, awake, oriented x3. No neurological deficits could be appreciated. ASSESSMENT: 1. Hypothyroidism, vitamin B12 deficiency. 2. Status post suicidal attempt. PLAN: We will resume the patient's levothyroxine 75 mcg daily and give vitamin B12 at 1000 mcg IM daily for 5 days. We will follow up with you. Brittany Chua MD
--- NOTE | 2017-09-21 14:19 | PN ---
DATE: 09/21/2017 DAILY PROGRESS NOTE SUBJECTIVE: The patient is seen today, 09/21/2017. PHYSICAL EXAMINATION: VITAL SIGNS: She has high blood pressure 150/95, temperature 97.7, respiratory rate 18 and pulse 82. HEENT: Pupils equal, reactive to light. Normal-appearing mucosa of the conjunctivae, oropharyngeal and nasal membrane mucosa. NECK: Supple. No JVD. No carotid bruit. No lymph node. No thyromegaly. CHEST AND LUNGS: Bilateral symmetrical expansion. Good air exchange. No rales. No rhonchi. CARDIOVASCULAR SYSTEM: S1 and S2. No additional sounds. ABDOMEN: Normoactive bowel sounds. No tenderness. No organomegaly. No masses. EXTREMITIES: No cyanosis. No clubbing. No edema. CENTRAL NERVOUS SYSTEM: Alert, awake, oriented x3. No neurological deficit could be appreciated. ASSESSMENT: Hypertension, vitamin B12 deficiency, hypothyroidism. PLAN: We will start the patient on bisoprolol and hydrochlorothiazide 2.5-6.25 and continue levothyroxine and vitamin B12. We will follow up with you. Brittany Chua MD
[2017-09-22] MEDS: Levothyroxine 75 MCG TAB PO SCH (08:15)
--- NOTE | 2017-09-22 14:02 | PCM.PYCHPN ---
Psychiatric Progress Note - Psychiatric Progress Note Patient seen today, length of contact: Patient evaluated, case discussed with team, chart reviewed Patient Chief Complaint: pt is still depressed and anxious and still at times withdrawn and cant sleep at night.denies any tiredness now. Medication Change: Yes (increase remeron to 15 mg hs) Medical Record Reviewed: Yes Mental Status Examination - Cognitive Function Orientation: Person, Place, Situation, Time Memory: Intact Attention: WNL Concentration: WNL Association: WNL Fund of Knowledge: WNL - Mood Mood: Depressed - Affect Affect: Constricted, Depressed - Speech Speech: Soft - Formal Thought Process Formal Thought Process: No Impairment - Suicidal Ideation Suicidal Ideation: No - Homicidal Ideation Homicidal Ideation: No Goal/Treatment Plan - Goal/Treatment Plan Need for Continued Stay: Remain at risks for inpatient hospitalization, Severe depression anxiety, Discharge may exacerbated symptoms Progress Toward Problem(s) and Goals/Treatment Plan: will increase remeron to 15 mg hs to stabilize the depression and insomnia and pt and family agreed. Estimated Date of D/C: 09/24/17
[2017-09-23] MEDS: Levothyroxine 75 MCG TAB PO SCH (09:28)
--- NOTE | 2017-09-23 10:00 | CON ---
DATE: HISTORY OF PRESENT ILLNESS: This is a 57-year-old female with no significant past medical history, was admitted to psych carpio after suicidal attempt. Medical consultation was called for medical followup. The patient was initially admitted to Intensive Care Unit for ingestion of unknown amount of alprazolam. The patient was treated in the intensive care unit and was discharged to psych carpio. The patient denied having any chest pain, denied having any shortness of breath. REVIEW OF SYSTEMS: Other review of system is negative. ALLERGIES: POSITIVE FOR MORPHINE AND PENICILLIN. HOME MEDICATIONS: Valtrex and Xanax. PAST MEDICAL HISTORY: Nonsignificant. SOCIAL HISTORY: No history of smoking, EtOH, or substance abuse. FAMILY HISTORY: Noncontributory. PHYSICAL EXAMINATION: GENERAL: The patient is not in any cardiopulmonary distress. VITAL SIGNS: Blood pressure 132/85, temperature 98.1, respiratory rate 20, and pulse 87. HEENT: Pupils equal, reactive to light. Normal-appearing mucosa of the conjunctivae, oropharynx, and nasal membrane mucosa. NECK: Supple. No JVD. No carotid bruit. No lymph node. No thyromegaly. CHEST AND LUNGS: Bilateral symmetrical expansion. Good air exchange. No rales, no rhonchi. CARDIOVASCULAR: PMI not localized. S1 and S2. No additional sounds. ABDOMEN: Normoactive bowel sounds. No tenderness. No organomegaly. No masses. EXTREMITIES: No cyanosis, no clubbing, no edema. CENTRAL NERVOUS SYSTEMS: Alert, awake, oriented x3. No neurological deficit could be appreciated. ASSESSMENT: 1. Status post alprazolam overdose. 2. History of recurrent herpes, on Valtrex, currently has no lesions. 3. History of hypothyroidism, currently not on any medications. PLAN: Repeat blood work including TSH, and we will follow up with you. Brittany Chua MD
--- NOTE | 2017-09-23 11:35 | PCM.PYCHPN ---
Psychiatric Progress Note - Psychiatric Progress Note Patient seen today, length of contact: Patient evaluated, case discussed with team, chart reviewed Patient Chief Complaint: "I'm depressed." Problems Identified/Issues Discussed: Patient was acutely paranoid and psychotic overnight, requiring PRN Haldol and Ativan. She believed that she saw people that were after her. She states that at times she believes she can see bad things in people. As per overnight report , the patient was running in the hallways, threw water, kicked a staff member and was hyperverbal. She was placed on 1:1 at that time. Asphalt Plant Laborer discussed starting Risperdal with the patient. No current adverse effects reported. Medication Change: Yes (Start Risperdal 0.5 mg PO HS) Medical Record Reviewed: Yes Consults ordered or reviewed: Medicine consult Mental Status Examination - Cognitive Function Orientation: Person, Place, Situation, Time Memory: Intact Attention: WNL Concentration: WNL Association: WNL Fund of Knowledge: WNL Decription of patient's judgement and insights: Fair I/J - Mood Mood: Depressed - Affect Affect: Constricted, Depressed - Speech Speech: Soft - Formal Thought Process Formal Thought Process: Paranoia Psychotic Thoughts and Behaviors: +Paranoia - Suicidal Ideation Suicidal Ideation: No - Homicidal Ideation Homicidal Ideation: No Goal/Treatment Plan - Goal/Treatment Plan Need for Continued Stay: Remain at risks for inpatient hospitalization, Severe depression anxiety, Discharge may exacerbated symptoms Progress Toward Problem(s) and Goals/Treatment Plan: Major Depressive Disorder; patient needs acute inpatient admission for treatment and safety -Individual and group therapy -Medicine consult -1:1 for safety -Continue Remeron 15 mg PO HS -Start Risperdal 0.5 mg PO HS -Family meeting with patient's -Disposition planning Estimated Date of D/C: 09/26/17
--- NOTE | 2017-09-24 00:06 | PN ---
DATE: 09/23/2017 SUBJECTIVE: The patient is seen today, 09/23/2017. The patient had a time of agitation and anxiety the night before. PHYSICAL EXAMINATION: VITAL SIGNS: Today, 112/68, temperature 98.1, respiratory rate 20, and pulse 85. HEENT: Pupils equal, reactive to light. Normal-appearing mucosa of the conjunctivae, oropharynx and nasal membrane mucosa. NECK: Supple. No JVD. No carotid bruit. No lymph node. No thyromegaly. CHEST AND LUNGS: Bilateral symmetrical expansion. Good air exchange. No rales, no rhonchi. CARDIOVASCULAR SYSTEM: PMI not localized. S1, S2. No additional sounds. ABDOMEN: Normoactive bowel sounds. No tenderness. No organomegaly. No masses. EXTREMITIES: No cyanosis, no clubbing, no edema. CENTRAL NERVOUS SYSTEM: Alert, awake, oriented x2. No neurological deficit could be appreciated. ASSESSMENT: Hypothyroidism, vitamin B12 deficiency, status post drug overdose. PLAN: Continue current medications, and we will follow up with you. Brittany Chua MD
[2017-09-24] MEDS: Levothyroxine 75 MCG TAB PO SCH (08:29)
--- NOTE | 2017-09-24 09:53 | PCM.PYCHPN ---
Psychiatric Progress Note - Psychiatric Progress Note Patient seen today, length of contact: Patient evaluated, case discussed with team, chart reviewed Patient Chief Complaint: "I'm depressed." Problems Identified/Issues Discussed: No significant events overnight. No episodes of aggression or agitation. Patient continues to report feeling depressed in the context of her being terminally ill. She denies acute paranoia/hallucinations. No adverse effects to medications reported. Live Source Operator discussed case with patient's who states that his has been depressed, but he has not observed any psychotic behaviors in the past. Live Source Operator provided psychoeducation on MDD w/ psychosis. We discussed the patient's current medical treatment. Patient provided consent to group underwriter to discuss all medical and psychiatric information with her . Medication Change: No Medical Record Reviewed: Yes Consults ordered or reviewed: Medicine consult Mental Status Examination - Cognitive Function Orientation: Person, Place, Situation, Time Memory: Intact Attention: WNL Concentration: WNL Association: [facility] Fund of Knowledge: [facility] Decription of patient's judgement and insights: Fair I/J - Mood Mood: Depressed - Affect Affect: Constricted, Depressed - Speech Speech: Soft - Formal Thought Process Formal Thought Process: No Impairment Psychotic Thoughts and Behaviors: +Denies acute paranoia/hallucinations - Suicidal Ideation Suicidal Ideation: No - Homicidal Ideation Homicidal Ideation: No Goal/Treatment Plan - Goal/Treatment Plan Need for Continued Stay: Remain at risks for inpatient hospitalization, Severe depression anxiety, Discharge may exacerbated symptoms Progress Toward Problem(s) and Goals/Treatment Plan: Major Depressive Disorder; patient needs acute inpatient admission for treatment and safety -Individual and group therapy -Medicine consult -Discontinue 1:1; will continue Q15 checks -Continue Remeron 15 mg PO HS -Continue Risperdal 0.5 mg PO HS -Case discussed w/ patient's -Disposition planning Estimated Date of D/C: 09/26/17
--- NOTE | 2017-09-25 01:04 | PN ---
DATE: 09/24/2017 SUBJECTIVE: The patient is seen today, 09/24/2017. She is less agitated and cooperative with the staff on the floor. PHYSICAL EXAMINATION VITAL SIGNS: Blood pressure is 120/71, temperature 97.7, respiratory rate 18 and pulse 100. HEENT: Pupils equal, reactive to light. Normal-appearing mucosa of the conjunctivae, oropharynx, and nasal membrane mucosa. NECK: Supple. No JVD. No carotid bruit. No lymph node. No thyromegaly. CHEST AND LUNGS: Bilateral symmetrical expansion. Good air exchange. No rales, no rhonchi. CARDIOVASCULAR SYSTEM: PMI not localized, S1 and S2. No additional sounds. ABDOMEN: Normoactive bowel sounds. No tenderness. No organomegaly. No masses. EXTREMITIES: No cyanosis, no clubbing, no edema. CENTRAL NERVOUS SYSTEM: Alert, awake, oriented x2. No neurological deficits could be appreciated. ASSESSMENT: Hypothyroidism, vitamin B12 deficiency, status post drug overdose. PLAN: Continue current medications and treatment and we will hold the blood pressure medications at this time due to the lower side blood pressure and we will continue to monitor. We will follow up with you. Brittany Chua MD
[2017-09-25] MEDS: Levothyroxine 75 MCG TAB PO SCH (08:46)
--- NOTE | 2017-09-25 09:32 | PCM.PYCHPN ---
Psychiatric Progress Note - Psychiatric Progress Note Patient seen today, length of contact: Patient evaluated, case discussed with team, chart reviewed Patient Chief Complaint: "I'm okay." Problems Identified/Issues Discussed: No significant events overnight. No episodes of aggression or agitation. Patient reports that her mood is starting to improve. She is more goal oriented. She is remorseful of her suicide attempt and is goal oriented. She would like to be alive for her and is also looking forward to visiting her family in [facility]. NO AH/VH/paranoia/delusions. No adverse effects to medications reported. Medication Change: No Medical Record Reviewed: Yes Consults ordered or reviewed: Medicine consult Mental Status Examination - Cognitive Function Orientation: Person, Place, Situation, Time Memory: Intact Attention: WNL Concentration: WNL Association: WNL Fund of Knowledge: [facility] Decription of patient's judgement and insights: Fair I/J - Mood Mood: Depressed - Affect Affect: Depressed - Speech Speech: Soft - Formal Thought Process Formal Thought Process: No Impairment Psychotic Thoughts and Behaviors: +Denies acute paranoia/hallucinations - Suicidal Ideation Suicidal Ideation: No - Homicidal Ideation Homicidal Ideation: No Goal/Treatment Plan - Goal/Treatment Plan Need for Continued Stay: Remain at risks for inpatient hospitalization, Severe depression anxiety, Discharge may exacerbated symptoms Progress Toward Problem(s) and Goals/Treatment Plan: Major Depressive Disorder; patient needs acute inpatient admission for treatment and safety -Individual and group therapy -Medicine consult -Continue Remeron 15 mg PO HS -Continue Risperdal 0.5 mg PO HS -Case discussed w/ patient's -Disposition planning Estimated Date of D/C: 09/27/17
[2017-09-26 05:43] VITALS: RESP 19
[2017-09-26] MEDS: Levothyroxine 75 MCG TAB PO SCH (08:12)
--- NOTE | 2017-09-26 08:14 | PCM.PYCHPN ---
Psychiatric Progress Note - Psychiatric Progress Note Patient seen today, length of contact: Patient evaluated, case discussed with team, chart reviewed Patient Chief Complaint: "I'm okay." Problems Identified/Issues Discussed: Patient continues to improve clinically. She reports improvement in mood and denies acute SI/HI/AH/VH/paranoia. She is goal oriented. No adverse effects to medications reported. We discussed likely discharge tomorrow if patient continues to improve clinically. Medication Change: No Medical Record Reviewed: Yes Consults ordered or reviewed: Medicine consult Mental Status Examination - Cognitive Function Orientation: Person, Place, Situation, Time Memory: Intact Attention: WNL Concentration: WNL Association: WN Fund of Knowledge: [facility] Decription of patient's judgement and insights: Fair I/J - Mood Mood: Depressed - Affect Affect: Broad - Speech Speech: Appropriate - Formal Thought Process Formal Thought Process: No Impairment Psychotic Thoughts and Behaviors: No AH/VH/paranoia/delusions - Suicidal Ideation Suicidal Ideation: No - Homicidal Ideation Homicidal Ideation: No Goal/Treatment Plan - Goal/Treatment Plan Need for Continued Stay: Severe depression anxiety Progress Toward Problem(s) and Goals/Treatment Plan: Major Depressive Disorder; patient needs acute inpatient admission for treatment and safety -Individual and group therapy -Medicine consult -Continue Remeron 15 mg PO HS -Continue Risperdal 0.5 mg PO HS -Case discussed w/ patient's -Disposition planning Estimated Date of D/C: 09/27/17
[2017-09-26 15:17] VITALS: TEMP 98.1
[2017-09-26] MEDS: VALACYCLOVIR 500 MG PO SCH (16:15)
--- NOTE | 2017-09-26 21:24 | PN ---
DATE: 09/26/2017 DAILY PROGRESS NOTE SUBJECTIVE: The patient is seen today, 09/26/2017. She is complaining of pain on the right buttock area with rashes. PHYSICAL EXAMINATION: VITAL SIGNS: Blood pressure 122/73, temperature 97.7, respiratory rate 19 and pulse 79. HEENT: Pupils equal, reactive to light. Normal-appearing mucosa of the conjunctivae, oropharyngeal and nasal membrane mucosa. NECK: Supple. No JVD. No carotid bruit. No lymph node. No thyromegaly. CHEST AND LUNGS: Bilateral symmetrical expansion. Good air exchange. No rales. No rhonchi. CARDIOVASCULAR SYSTEM: PMI not localized. S1 and S2. No additional sounds. ABDOMEN: Normoactive bowel sounds. No tenderness. No organomegaly. No masses. EXTREMITIES: No cyanosis. No clubbing. No edema. CENTRAL NERVOUS SYSTEM: Alert, awake, oriented x2. No neurological deficit could be appreciated. SKIN: The patient has vesicular rashes on the right buttock area on erythematous base. ASSESSMENT: 1. Herpes zoster. 2. Hypothyroidism. 3. Vitamin B12 deficiency. 4. Status post drug overdose. PLAN: We will start the patient on acyclovir 800 mg 4 times a day. Continue current medications. We will follow with you. Brittany Chua MD
[2017-09-27 05:57] VITALS: BP 121/74; PULSE 94
--- NOTE | 2017-09-27 08:46 | PCM.PYCHDC ---
Mental Status Examination - Mental Status Examination Orientation: Person, Place, Situation, Time Memory: Intact Mood: Neutral Affect: Broad Speech: Appropriate Attention: WNL Concentration: WNL Association: WNL Fund of Knowledge: WNL Formal Thought Process: No Impairment Description of patient's judgement and insight: Fair I/J Psychotic Thoughts and Behaviors: No AH/VH/paranoia/delusions Suicidal Ideation: No Current Homicidal Ideation?: No Discharge Summary - Discharge Note Reason for Hospitalization: HPI:57 yo female BIB EMS after she overdosed on 26-28 tablets of Xanax 2 mg, which the patient was prescribed for sleep. Patient reports that she spontaneously decided to overdose on pills due to the stress of her having cancer. She reports that she has had depressed mood, sleep/appetite disturbances, anhedonia. She denies current AH/VH/SI/HI. She is able to contract for safety at this time. Patient received the Xanax from her PMD. PMHx: Herpes, Hypothyroidism, h/o HLD SHx: , lives w/ . No other illicit drug use. Unemployed. From [facility]. PPHx: Receives Xanax from her PMD; has a history of seeing a psychiatrist once, but did not follow-up. No history of psychiatric admissions. ALL: Morphine, PCN Consultations:: List each consultation separately and include: 1. Reason for request. 2. Findings. 3. Follow-up Consultations: Medicine consult Summary of Hospital Course include:: 1. Description of specific treatment plan utilized for patients during their course of treatmen. 2. Summarize the time- course for resolution of acute symptoms and/or regressed behaviors. 3. Describe issues identified and worked on during hospitalization. 4. Describe medication utilized. 5. Describe medical problems identified and treated. 6. Reassessment of suicide risk Summary of Hospital Course: Patient was admitted to the psychiatry unit. Individual and group therapy were provided. Patient was stabilized on Remeron 15 mg PO HS and Risperdal 0.5 mg PO HS. She reports improvement in mood and no longer has suicidal ideation. She no longer has paranoia or acute psychotic symptoms. Patient is psychiatrically stable for discharge when outpatient follow-up. - Diagnosis (1) Major depressive disorder Current Visit: Yes Status: Resolved - Final Diagnosis (DSM 5) Condition upon Discharge: STABLE DSM 5: Major Depressive Disorder w/ Psychotic Features Disposition: HOME/ ROUTINE Follow-up Treatment Plan: Major Depressive Disorder; patient needs acute inpatient admission for treatment and safety -Individual and group therapy -Medicine consult -Continue Remeron 15 mg PO HS -Continue Risperdal 0.5 mg PO HS -Case discussed w/ patient's -Disposition planning Prescriptions/Medication Reconciliation: Levothyroxine [Synthroid] 75 mcg PO DAILY@0630 #30 tab Mirtazapine [Remeron] 15 mg PO HS #30 tab risperiDONE [RisperDAL Tab] 0.5 mg PO HS #30 tab - Smoking Cessation Smoking Cessation Medication prescribed: No Reason for not providing: Not indicated - Antipsychotic Medications Pt discharged on 2 or more routine antipsychotic medications: No
[2017-09-27] MEDS: VALACYCLOVIR 500 MG PO SCH ×2 (09:32→12:58)
[2017-09-27] MEDS: Levothyroxine 75 MCG TAB PO SCH (09:32)
--- NOTE | 2017-09-27 12:59 | PCM.BM ---
Treatment Plan Problems - Problems identified on initial assessmt Altered Sleep Patterns Date Initiated: 09/18/17 Time Initiated: 19:57 Assessment reference: NA Status: Active Treatment assets and liabiliti Patient Assests: adapts well, cooperative, ADL independent, good support system , negotiates basic needs, good interpersonal skills Patient Liabilities: medical problems - Milieu Protocol Maintain good personal hygiene: every shift Encourage regular showers, every shift Remind patient to perform daily oral care, every shift Assist patient to perform ADL's Maintain personal safety: daily Educate patient to report safety concerns to staff, daily Monitor environment for contraband/sharps Medication safety: Monitor for expected outcome, potential side effects: daily, Assess barriers to learning: daily, Assess readiness for medication education: daily Milieu Narrative: Major Depressive Disorder; patient needs acute inpatient admission for treatment and safety -Individual and group therapy -Medicine consult -Continue Remeron 15 mg PO HS -Continue Risperdal 0.5 mg PO HS -Case discussed w/ patient's -Disposition planning Family Contact Family involvement: Family/SO is involved Family contact: Patient agrees to contact, Telephone contact initiated by staff Family contact name: Raheem - spouse Family contacted how many times per week?: 2 Family contact comment: [phone] - Goals for Treatment Patient goals for treatment: "I want to be able to take care of my hsuband." Discharge/Continuing Care - Education Needs Education Needs: Family Medication, Family Diagnosis/Disease Process, Family Coping Skills, Family Community resources, Family Activities of Daily Living, Family Nutrition, Family Health Practices/Safety, Family Personal Hygiene/ Grooming, Family Aftercare Safety Plan, Patient Medication, Patient Diagnosis/ Disease Process, Patient Coping Skills, Patient Community resources, Patient Activities of Daily Living, Patient Nutrition, Patient Health Practices/Safety, Patient Personal Hygiene/Grooming, Patient Aftercare Safety Plan - Discharge Discharge Criteria: Tolerates medication w/o severe side effects, Free of Suicidal thoughts, Normal sleep pattern, Ability to care for self, Reduction of target symptoms Discharge to:: Home, With Family - Additional Comments 09/20/17 15:16 Pt seen and discussed in team meeting. Reason for admission reviewed and discussed. Pt reported feeling "I'm fine" now. Pt reported her suicide attempt was impulse and not planned. Pt reported previous suicide thoughts without plan and no intent. Pt reported her was sleeping and she got up and went to the dining room and next thing she knew she was in the hospital. Pt reported the last thing she recalls is feeling alone. Pt reported she is afraid to lose her to [place]. Pt's currently has stage 4 prostate cancer. Pt reported hx of depression untreated. Pt also reported she was prescribed Xanax 2mg at bedtime to help her with her sleep. Pt denied active SI and HI. Pt denied active wishes. Pt's social and medical issues reviewed and discussed. Pt's medications reviewed and discussed. Tx plan reviewed and pt is agreeable. SW to continue to follow case. - Treatment Team Participation Patient/Family/SO Statement: Major Depressive Disorder; patient needs acute inpatient admission for treatment and safety -Individual and group therapy -Medicine consult -Continue Remeron 15 mg PO HS -Continue Risperdal 0.5 mg PO HS -Case discussed w/ patient's -Disposition planning Discussed with Family/SO: No Was Patient/Family/SO present at Treatment Team Meeting: Yes Treatment Plan Review - Problem Altered Sleep Patterns Date Initiated: 09/18/17 Time Initiated: 19:57 Progress toward outcomes: resolved Date resolved: 09/23/17 - Discharge / Continuing Care Discharge to:: With [facility] Services: Intensive Outpatient, Outpatient therapy, Other (Pt is agreeable to following up with an outpatient provider for medication management and psychotherapy.) Health Needs: Follow up care/test, Doctor appointments, Nutritional, Medications /Rx
== END 2017-09-27 15:45 | disposition home or self-care (01) | DRG 885 ==
LOC: H.STEP 18:48
PROVIDERS: ADMIT Psychiatry & Neurology Psychiatry; ATTEND Psychiatry & Neurology Psychiatry
PROC: GZHZZZZ Group Psychotherapy (ICD-10-PCS; principal; 2017-09-18)
PROC: GZ58ZZZ Individual Psychotherapy, Cognitive-Behavioral (ICD-10-PCS; 2017-09-18)
DX: F32.3 Major depressive disorder, single episode, severe with psychotic features (principal); B02.9 Zoster without complications; E03.9 Hypothyroidism, unspecified; E53.8 Deficiency of other specified B group vitamins; E78.5 Hyperlipidemia, unspecified; I10 Essential (primary) hypertension; G47.00 Insomnia, unspecified; Z91.5 Personal history of self-harm; Z88.6 Allergy status to analgesic agent; Z88.0 Allergy status to penicillin